=== PATIENT | male | born 1985 | race African-American/Black ===

== ENCOUNTER 2018-01-05 21:10 | Emergency (ER) | payer MEDICAID ==
[2018-01-05] MEDS ORDERED: MAGNESIUM HYDROXIDE/AL HYDROX 30 ML, LIDOCAINE VISC 2% 200 MG PO ONE ×2 (21:28)
--- NOTE | 2018-01-05 21:35 | Emergency Department Record ---
History of Present Illness - General Chief complaint: Nausea, Vomiting, Diarrhea Stated complaint: HEARTBURN Time Seen by Provider: 01/05/18 21:25 Source: Patient Mode of Arrival: EMS Limitations: No limitations - History of Present Illness Initial comments: The patient is here due to intermittent nausea and "heartburn" for about a week. He had a sinus infection about 3 weeks ago and finished an oral Abx and developed heartburn then. It got better after he stopped eating solid foods but that has recently returned due to eating more spicy foods. He did not take anything for it due to living at the [facility] where he is unable to even take OTC medicines unless they are prescribed by a doctor. He denies any CP, SOB , HUE, sweating or vomiting. Presently the burning is improved. Additional hx is that the patient has a hx of schizophrenia and Bipolar disorder. MD complaint: Nausea Onset/Timin -: Hour(s) Associated Abdominal Pain: No Severity scale (1-10): 7 Consistency: Constant Improves with: None Worsens with: Eating Associated Symptoms: Nausea/vomiting - Related Data Home Medications Medication Instructions Recorded Confirmed Last Taken Benztropine Mesylate 2 mg PO DAILY 01/05/18 01/05/18 01/05/18 Cholecalciferol (Vitamin D3) 2,000 unit PO DAILY 01/05/18 01/05/18 01/05/18 [Vitamin D3] Divalproex Sodium 500 mg PO BID 01/05/18 01/05/18 01/05/18 Ergocalciferol (Vitamin D2) 50,000 unit PO WEEKLY 01/05/18 01/05/18 12/30/17 [Vitamin D2] Fluticasone Propionate [24 Hour 1 spray NS DAILY 01/05/18 01/05/18 01/05/18 Allergy Relief] Metformin HCl [Metformin HCl ER] 500 mg PO BID 01/05/18 01/05/18 01/05/18 Olanzapine [Zyprexa] 20 mg PO BID 01/05/18 01/05/18 01/05/18 Sertraline HCl [Zoloft] 100 mg PO DAILY 01/05/18 01/05/18 01/05/18 Previous Rx's Medication Instructions Recorded Sucralfate [Carafate] 1 gm PO QID #28 tablet 01/05/18 Allergies Allergy/AdvReac Type Severity Reaction Status Date / Time No Known Drug Allergies Allergy Verified 01/05/18 21:14 Travel Screening - Travel/Exposure Within Last 30 Days Have you traveled within the last 30 days?: No - Travel Symptoms Symptom Screening: None Review of Systems Constitutional: Denies: Chills, Fever Eyes: Denies: Eye discharge ENT: Denies: Congestion Respiratory: Denies: Cough, Dyspnea Cardiovascular: Denies: Arrhythmia, Chest pain Endocrine: Denies: Fatigue Gastrointestinal: Denies: Constipation Genitourinary: Denies: Dysuria Musculoskeletal: Denies: Back pain Past Medical History - SOCIAL HISTORY Smoking Status: Current every day smoker Alcohol Use: None - RESPIRATORY Hx Asthma: No - CARDIOVASCULAR Hx Cardio Disorders: No - NEURO Hx Neuro Disorders: No - ENDOCRINE Hx Endocrine Disorders: Yes Hx Diabetes: Yes - PSYCH Hx Psych Problems: Yes Family Medical History Any Significant Family History?: No Family Hx Comment (NOT TO BE USED IN PLACE OF ITEMS BELOW): pt denies Physical Exam - General General Appearance: Alert, Oriented x3, Cooperative, No acute distress - Head Head exam: Atraumatic, Normocephalic, Normal inspection - Eye Eye exam: Normal appearance, PERRL - ENT Throat exam: Normal inspection. negative: Tonsillar erythema, Tonsillar exudate - Neck Neck exam: Normal inspection, Full ROM. negative: Tenderness - Respiratory Respiratory exam: Normal lung sounds bilaterally. negative: Respiratory distress - Cardiovascular Cardiovascular Exam: Regular rate, Normal rhythm, Normal heart sounds - GI/Abdominal GI/Abdominal exam: Soft, Normal bowel sounds. negative: Tenderness - Extremities Extremities exam: Normal inspection, Full ROM, Normal capillary refill. negative: Tenderness - Neurological Neurological exam: Alert, Normal gait, Oriented X3. negative: Abnormal gait, Motor sensory deficit - Psychiatric Psychiatric exam: negative: Anxious Course Vital Signs 01/05/18 21:15 Temperature 98.1 F Pulse Rate 66 Respiratory 16 Rate Blood Pressure 135/82 Pulse Ox 97 - Reevaluation(s) Reevaluation #1: The patient is doing better. His hearburn is much improved after the GI cocktail. There is no CP, SOB, HUE, or sweating. 01/05/18 21:45 Reevaluation #2: The patient is doing very well at this time. He states his symptoms have resolved and he is ready for home. I did explain to him that he will need to see his PCP next week for recheck and to take Carafate as directed. 01/05/18 22:52 Medical Decision Making - Data Complexity MDM Data: Labs Ordered and/or Reviewed, X-Ray Ordered and/or Reviewed, EKG Ordered and/or Reviewed - Lab Data Result diagrams: 01/05/18 21:30 01/05/18 21:30 - EKG Data -: EKG Interpreted by Me EKG: No Acute Changes, Normal EKG - Radiology Data Radiology results: Report reviewed (CXR: Neg acute cardiopulmonary dz.) Disposition Disposition: Discharge Clinical Impression: GERD (gastroesophageal reflux disease) Qualifiers: Esophagitis presence: without esophagitis Qualified Code(s): K21.9 - Gastro- esophageal reflux disease without esophagitis Disposition: Home, Self-Care Condition: (2) Stable Instructions: Acute Nausea and Vomiting (ED) Additional Instructions: Please take the Carafate as directed and stay away from any fried or spicy foods. Please continue your regular medicines and see your family doctor next week as planned. Return to the ER for any chest or abdominal pain, fever, back pain, or vomiting. Prescriptions: Sucralfate [Carafate] 1 gm PO QID #28 tablet Forms: Patient Portal Access Time of Disposition: 22:54 Quality - Quality Measures Quality Measures: N/A - Blood Pressure Screening View Details: Yes Does Patient Have Any of the Following: No Blood Pressure Classification: Pre-Hypertensive BP Reading Systolic Measurement: 135 Diastolic Measurement: 82 Screening for High Blood Pressure: < Pre-Hypertensive BP, F/U Documented > [ [id number]] Pre-Hypertensive Follow-up Interventions: Referral to alternative/primary care provider.
[2018-01-05 21:38] LABS: BASO % 0.2 % (0-6); EOS % 2.3 % (0-6); GRAN % 41.7 % (47-80); HEMATOCRIT 41.6 % (42.0-52.0); HEMOGLOBIN 13.7 gm/dl (14.0-18.0); LYMPH % 43.5 % (16-45); MEAN CELL VOLUME 93.7 fl (81-97); MEAN CORPUSCULAR HEMOGLOBIN 30.8 pg (27-33); MEAN CORPUSCULAR HGB CONC 32.9 g/dl (32-36); MEAN PLATELET VOLUME 11.3 fl (7.4-10.4); MONO % 12.3 % (0-9); PLATELET COUNT 256 K/uL (130-400); RED BLOOD COUNT 4.44 M/uL (4.40-5.70); RED CELL DISTRIBUTION WIDTH 13.9 % (11.5-14.5); WHITE BLOOD COUNT W/O DIFF 5.7 K/uL (4.2-12.2)
[2018-01-05 21:47] LABS: BILIRUBIN,TOTAL < 0.20 mg/dL (0.2-1.0); BLOOD UREA NITROGEN 19 mg/dL (6-20); EST GLOMERULAR FILTRATION RATE > 60 mL/min; TOTAL PROTEIN 7.5 g/dL (6.6-8.7)
[2018-01-05 21:49] LABS: GLUCOSE,RANDOM 221 mg/dL (74-109)
[2018-01-05 21:52] LABS: ALB/GLOB RATIO 1.4 (1.1-1.8); ALBUMIN 4.4 g/dL (4.0-5.0); ALKALINE PHOSPHATASE 94 U/L (40-129); ALT/SGPT 45 U/L (<41); AST/SGOT 34 U/L (10.0-50.0); CREATINE PHOSPHOKINASE 824 U/L (39-308)
[2018-01-05] MEDS ORDERED: SUCRALFATE 1 G/10 ML UD PO ONE (21:53)
[2018-01-05] MEDS ORDERED: ACETAMINOPHEN 325 MG TAB PO ONE (22:22)
--- NOTE | 2018-01-07 08:44 | RADIOLOGY REPORT ---
EXAM: CHEST, TWO VIEWS HISTORY: HEARTBURN. TECHNIQUE: Upright PA and lateral views of the chest were obtained. Comparison: None. FINDINGS: The heart is not enlarged and the pulmonary vasculature is nondilated. No definite confluent air space opacity is seen nor is there costophrenic angle blunting or pneumothorax. There is mild dextroconvex curvature of the lower thoracic spine. IMPRESSION: NO CONVINCING EVIDENCE OF ACUTE CARDIOPULMONARY DISEASE. JOB NUMBER: [id number] MTDD
== END 2018-01-05 23:11 | disposition home or self-care (01) ==
LOC: ER 21:10
DX: K21.9 Gastro-esophageal reflux disease without esophagitis (principal); R11.2 Nausea with vomiting, unspecified; E11.9 Type 2 diabetes mellitus without complications; F17.210 Nicotine dependence, cigarettes, uncomplicated
CPT/HCPCS: 71046; 80053; 80164; 82550; 82553; 84484; 85025; 93005; 93010; 99284